=== PATIENT | female | born 1980 | race African-American/Black ===

== ENCOUNTER 2016-05-05 15:36 | Emergency (ER) | payer OTHER ==
[~2016-05-05] VITALS: Ht 177.8 cm; Wt 108.9 kg
[2016-05-05] MEDS ORDERED: HYDROCHLOROTHIA25 M2 PO (15:44)
[2016-05-05] MEDS ORDERED: NIFEDIPINE ER30 M1 PO (15:44)
[2016-05-05] MEDS ORDERED: BUSPIRONE HCL10 MG PO (15:47)
[2016-05-05 16:34] VITALS: BP 161/95
== END 2016-05-05 16:35 | disposition home or self-care (01) ==
LOC: ER 15:36
DX: J02.0 Streptococcal pharyngitis (principal); R50.9 Fever, unspecified; R51 Headache; J45.909 Unspecified asthma, uncomplicated; I10 Essential (primary) hypertension; Z98.890 Other specified postprocedural states; F17.210 Nicotine dependence, cigarettes, uncomplicated